=== PATIENT | female | born 1970 | race Caucasian/White ===

== ENCOUNTER 2018-10-09 10:52 | Emergency (ER) | payer MEDICAID ==
[~2018-10-09] VITALS: Ht 162.6 cm; Wt 70.0 kg
[2018-10-09 11:01] VITALS: Ht 162.6 cm; Wt 70.0 kg
--- NOTE | 2018-10-09 11:13 | ERD ---
ER Documentation Chief Complaint Chief Complaint BIB RA FOR EVAL OF CP HPI The patient is a 48-year-old female, presenting to the ER because of intermittent left-sided chest pain since 1:30 PM yesterday, denies similar symptoms previously, intermittent radiation to the left arm, no relieving factor, worsening with walking. He also complains of bilateral facial pain and headache intermittently for the last 2 weeks, denies abdominal pain, vomiting, dizzy, diarrhea. She does not smoke nor drink, has a lot of stress in her life Past medical history: Hypertension Past surgical history: None Family history: Negative for cardiac history ROS All systems reviewed and are negative except as per history of present illness. Medications Home Meds No Active Prescriptions or Reported Meds Allergies Allergies: Coded Allergies: No Known Allergy (Unverified , 10/09/18) Physical Exam Vitals Vital Signs Date Temp Pulse Resp B/P (MAP) Pulse Ox O2 O2 Flow FiO2 Time Delivery Rate 10/09/18 71 18 171/94 99 Room Air 14:15 (119) Physical Exam Const: No acute distress. Head: Atraumatic. Eyes: Normal Conjunctiva. ENT: Normal External Ears, Nose and Mouth. Neck: Full range of motion. No meningismus. Resp: Clear to auscultation bilaterally. Cardio: Regular rate and rhythm. Abd: Soft, non distended, normal bowel sounds, non tender. Skin: No petechiae or rashes. Back: No midline or flank tenderness. Ext: No cyanosis, or edema. Neur: Awake and alert. No focal deficit Psych: Anxious Result Diagram: 10/09/18 1119 10/09/18 1119 Results 24 hrs Laboratory Tests Test 10/09/18 11:19 10/09/18 11:42 10/09/18 13:58 White Blood Count 4.5 10^3/ul Red Blood Count 3.95 10^6/ul Hemoglobin 11.6 g/dl Hematocrit 35.7 % Mean Corpuscular Volume 90.4 fl Mean Corpuscular Hemoglobin 29.4 pg Mean Corpuscular 32.5 g/dl Hemoglobin Concent Red Cell Distribution Width 13.9 % Platelet Count 279 10^3/UL Mean Platelet Volume 10.6 fl Immature Granulocytes % 0.200 % Neutrophils % 49.0 % Lymphocytes % 41.9 % Monocytes % 7.0 % Eosinophils % 1.5 % Basophils % 0.4 % Nucleated Red Blood Cells % 0.0 /100WBC Immature Granulocytes # 0.010 10^3/ul Neutrophils # 2.2 10^3/ul Lymphocytes # 1.9 10^3/ul Monocytes # 0.3 10^3/ul Eosinophils # 0.1 10^3/ul Basophils # 0.0 10^3/ul Nucleated Red Blood Cells # 0.0 10^3/ul Sodium Level 143 mmol/L Potassium Level 3.7 mmol/L Chloride Level 101 mmol/L Carbon Dioxide Level 30 mmol/L Anion Gap 12 Blood Urea Nitrogen 14 mg/dl Creatinine 0.66 mg/dl Est Glomerular Filtrat > 60 mL/min Rate mL/min Glucose Level 90 mg/dl Calcium Level 9.4 mg/dl Troponin I < 0.012 ng/ml < 0.012 ng/ml POC Beta HCG, Qualitative NEGATIVE Current Medications Medications Dose Sig/Sharlene Start Time Status Last (Trade) Ordered Route PRN Stop Time Admin Dose Reason Admin Ketorolac 30 mg ONCE STAT 10/09/18 DC 10/09/18 Tromethamine IV 12:11 12:34 (Toradol) 10/09/18 12:12 Procedures/[place] [id number] Radiology Main Line: [phone] DIAGNOSTIC IMAGING REPORT Patient: ELIANE PARKER : 1970 Age: 48 Sex: F MR #: [id number] DOS: 10/09/18 1122 Ordering MD: ELIZABETH MIRANDA MD Location: E/R Room/Bed: PROCEDURE: XR Chest. CLINICAL INDICATION: chest pain TECHNIQUE: Single frontal view of the chest was obtained COMPARISON: None FINDINGS: The heart and mediastinum are within normal limits. There are small right upper lobe calcified granulomas. The lungs are otherwise clear. There is no pleural effusion or pneumothorax. RPTAT: AA IMPRESSION: No acute disease. Scattered small right upper lobe calcified granulomas. .Jermaine Anderson MD, MD Date Time Electronically viewed and signed by .Jermaine Anderson MD, MD on 10/09/2018 11:45 .S/ CC: ELIZABETH MIRANDA MD [phone] EKG: At 11:01 AM read by emergency physician Rate/Rhythm: Normal Sinus Rhythm 75 beats/min QRS, ST, T-waves: No ST elevation, no T inversion Impression: Normal EKG EKG: At 1:15 PM read by emergency physician Rate/Rhythm: Normal Sinus Rhythm 78 beats/min QRS, ST, T-waves: No ST elevation, RSR' V1 Impression: Abnormal EKG MEDICAL MAKING DECISION: The patient is is 48-year-old female, presenting with acute chest pain of unclear etiology, was treated with Toradol 30 mg IV for pain with good response, is stable for outpatient follow-up. I do not suspect acute ACS The differential diagnoses considered include but are not limited to acute coronary syndrome, acute myocardial infarction, pericarditis, pulmonary embolism, aortic dissection, pneumonia, pleural effusion, pneumothorax, GERD, chest wall pain. The patient presents with chest pain and I considered pulmonary embolism, aortic dissection, pneumothorax among other diagnoses. Evaluation for acute coronary syndrome was performed. The HEART score (www.mdcalc.com) was utilized for risk stratification and found to be <= 3. Repeat EKG and troponin @ 3 hours were unchanged. Based on this evaluation the patients risk of major adverse cardiac events is <1%. Shared decision making occurred with patient and the decision has been made to discharge the patient for outpatient evaluation and functional study within 72 hours. Departure Diagnosis: Primary Impression: Chest pain Additional Impressions: Anemia Leukopenia Condition: Good Comments I discussed the findings with the patient. I advised the patient to follow-up with the primary physician in about 2-3 days, sooner if needed and return if any concern. Disclaimer: Inadvertent spelling and grammatical errors are likely due to EHR/dictation software use and do not reflect on the overall quality of patient care. Also, please note that the electronic time recorded on this note does not necessarily reflect the actual time of the patient encounter. ELIZABETH MIRANDA MD Oct 09, 2018 11:13
[2018-10-09] MEDS ORDERED: KETOROLAC 30 MG INJ IV STA (12:11)
[2018-10-09 14:15] VITALS: BP 171/94; PULSE 71; RESP 18
== END 2018-10-09 16:12 | disposition home or self-care (01) ==
LOC: E/R 10:52
DX: R07.9 Chest pain, unspecified (principal); I10 Essential (primary) hypertension; D64.9 Anemia, unspecified; D72.819 Decreased white blood cell count, unspecified
CPT/HCPCS: 71045; 80048; 81025; 84484; 85025; 93005; 96374; J1885; Z7502